=== PATIENT | male | born 1985 | race Caucasian/White ===

== ENCOUNTER 2019-07-03 18:46 | Emergency (ER) | payer OTHER ==
--- NOTE | 2019-07-03 19:36 | ED Physician Documentation ---
History of Present Illness - Stated complaint Stated Complaint: DOG BITE/R LEG - Chief complaint Chief Complaint: Laceration - Additonal information Additional information: Pt presents after his and his 's dog bit his right leg. He was reaching for a keller in the kitchen that was near his and their dog apparently became agitated and protective of patient's , and bit his leg. The dog is up to date with shots, as is the patient. He was bitten only on the leg. Review of Systems Constitutional: denies: Fever GI: denies: Abdominal Pain Skin: reports: Laceration (s) Musculoskeletal: reports: Extremity pain PD PAST MEDICAL HISTORY - Past Medical History Past Medical History: Yes Cardiovascular: None Respiratory: None Neuro: None Endocrine/Autoimmune: None GI: None : None HEENT: None Psych: None Musculoskeletal: None Derm: Other Other Past Medical History: vitiligo; - Past Surgical History Past Surgical History: Yes HEENT: Tonsil/Adenoidectomy - Present Medications Home Medications: Ambulatory Orders Medication Instructions Recorded Confirmed Amox/Clav 875/125 [Augmentin] 1 each PO Q12H #10 tablet 07/03/19 Bacitracin Zinc Oint 1 applic TOP BID #1 tube 07/03/19 - Allergies Allergies/Adverse Reactions: Allergies Allergy/AdvReac Type Severity Reaction Status Date / Time No Known Drug Allergies Allergy Verified 07/03/19 18:59 - Social History Does the pt smoke?: No Smoking Status: Former smoker Does the pt drink ETOH?: Yes Does the pt have substance abuse?: No - Immunizations Immunizations are current?: Yes - POLST Patient has POLST: No PD ED PE NORMAL - Vitals Vital signs reviewed: Yes - General General: Alert and oriented X 3, No acute distress - HEENT HEENT: Atraumatic - Cardiac Cardiac: Strong equal pulses - Respiratory Respiratory: No respiratory distress - Abdomen Abdomen: Non distended - Extremities Extremities: Other (There are scattered small puncture wounds and abraions around the right leg just below the knee. There is a 4cm curved avulsion on the mid lower leg that extends to the subcutaneous tissue. No active bleeding. No bony tenderness, full ROM of joints. Sensation is reduced over the area of the wound, but distal sensation is intact. Wound is explored to the base and there is no foreign body.) - Neuro Neuro: Alert and oriented X 3 - Psych Psych: Normal mood, Normal affect Results - Vitals Vitals: Oxygen O2 Source Room air Procedures - Laceration (location) Lower extremity right Length in cm: 4 Wound type: Curved (Curved avulsion), Into subcut fat Neurovascular status: Motor intact, Vascular intact Tendon involvement: Other (No tendon or muscle involvement.) Anesthesia: Lidocaine 1% Wound Preparation: Irrigated copiously NS Skin layer closure: Interrupted, Other (4-0 Ethilon) Other: Patient tolerated well, No complications, Dressing applied, Tetanus UTD Complexity: Simple PD MEDICAL DECISION MAKING - ED course Complexity details: considered differential (Laceration, neurovascularly injury, dog bite, crush injury, risk of infection) ED course: Pt presents after a dog bite to the right leg. No bony tenderness, and his limb is neurovascularly intact other than mild numbness locally around the area of the bite. His wounds were cleaned and irrigated copiously. XR not needed as I could explore the wounds to their base. He has several small puncture wounds that after discussion with the patient we did not close due to risk of infection and negligible cosmetic consequence. He has a larger curved avulsion that does require repair, this was repaired as noted above with very good result. He was started on augmentin for infection prophylaxis. Wound care, follow up, and return precautions (with an emphasis on signs of infection) were reviewed with the patient, and he was discharged in the care of his . Departure - Departure Disposition: 01 Home, Self Care Clinical Impression: Dog bite Qualifiers: Encounter type: initial encounter Qualified Code(s): W54.0XXA - Bitten by dog, initial encounter Condition: Good Instructions: ED Bite Animal General Follow-Up: DALI HOOKER MD [Primary Care Provider] - (In 10-12 days for check for suture removal) Prescriptions: Amox/Clav 875/125 [Augmentin] 1 each PO Q12H #10 tablet Bacitracin Zinc Oint 1 applic TOP BID #1 tube Comments: You were seen today for a dog bite. The largest wound was sutured, please keep a careful eye on these wounds for signs of infection. If you develop redness that is expanding out from the border of the wounds, or pus draining the wounds return to the emergency department immediately. Please take the antibiotic as directed. Follow-up with your primary care provider in the next 10 to 12 days for a recheck of the wound and suture removal. Discharge Date/Time: 07/03/19 21:23
[2019-07-03] MEDS ORDERED: AMOX/CLAV 875 MG/125 MG TABLET PO STA (19:59)
[2019-07-03] MEDS ORDERED: LIDOCAINE 1%-EPI 1:100000 20 ML MDV SUBQ STA (20:00)
[2019-07-03 21:22] VITALS: BP 165/100
== END 2019-07-03 21:23 | disposition home or self-care (01) ==
LOC: ED 18:46
DX: S81.851A Open bite, right lower leg, initial encounter (principal); W54.0XXA Bitten by dog, initial encounter; Y93.89 Activity, other specified; Y92.000 Kitchen of unspecified non-institutional (private) residence as the place of occurrence of the external cause; Z87.891 Personal history of nicotine dependence
CPT/HCPCS: 12002; 99282; 99283; A9270